=== PATIENT | male | born 1970 | race Caucasian/White ===

== ENCOUNTER 2018-11-08 10:24 | Emergency (ER) | payer OTHER ==
--- NOTE | 2018-11-08 10:58 | ER Document Report ---
ED Medical Screen (RME) - General Mode of Arrival: Ambulatory Information source: Patient <EVRONICA THOMASQUELINE - Last Filed: 11/08/18 10:56> <TYLER MERCADO - Last Filed: 11/08/18 14:29> - General Chief Complaint: Urinary Problem Stated Complaint: BLOOD IN URINE Time Seen by Provider: 11/08/18 10:54 Notes: 48-year-old male presented to ED for complaint of left testicular aching fullness tightness with a bladder aching fullness. He states he has been having frequent urine all weekend but his urine is remaining dark in color. He states he has some stinging with his urine but not really burning. Patient has a history of diabetes fractures to fingers toes high blood pressure and has had a labrum repair and bilateral inguinal hernia repair. Patient is alert oriented respirations regular and unlabored speaking in full sentences. He was sent over by the [place] [facility]. I have greeted and performed a rapid initial assessment of this patient. A comprehensive ED assessment and evaluation of the patient, analysis of test results and completion of medical decision making process will be conducted by an additional ED providers. ([place]ER[place] THOMAS) - Related Data Allergies/Adverse Reactions: No Known Allergies Allergy (Unverified 11/08/18 10:30) - Vital signs Vitals: Temp Pulse Resp BP Pulse Ox 98.2 F 77 16 148/92 H 98 11/08/18 10:37 11/08/18 10:37 11/08/18 10:37 11/08/18 10:37 11/08/18 10:37 Course - Laboratory Result Diagrams: 11/08/18 11:11 11/08/18 11:11 <TYLER MERCADO - Last Filed: 11/08/18 14:29> - Vital Signs Vital signs: Temp Pulse Resp BP Pulse Ox 98.1 F 87 18 158/98 H 100 11/08/18 14:04 11/08/18 14:04 11/08/18 14:04 11/08/18 14:04 11/08/18 14:04 - Laboratory Laboratory results interpreted by me: 11/08/18 11/08/18 10:30 11:11 Glucose 153 H Creatine Kinase 41 L Urine Protein 30 H Urine Glucose (UA) >=500 H Urine Ketones TRACE H Urine Blood LARGE H
[2018-11-08 11:31] LABS: ABSOLUTE EOSINOPHILS # (AUTO) 0.1 10^3/uL (0.0-0.6); ABSOLUTE LYMPHOCYTES (AUTO) 2.4 10^3/uL (0.5-4.7); ABSOLUTE MONOCYTES (AUTO) 0.6 10^3/uL (0.1-1.4); ABSOLUTE NEUT (AUTO) 3.5 10^3/uL (1.7-8.2); BASOPHILS % (AUTO) 0.5 % (0-2); EOSINOPHILS % (AUTO) 1.5 % (0-6); HEMATOCRIT 44.5 % (37.9-51.0); HEMOGLOBIN 15.2 g/dL (13.5-17.0); LYMPHOCYTES % (AUTO) 35.9 % (13-45); MEAN CORPUSCULAR HEMOGLOBIN 29.7 pg (27.0-33.4); MEAN CORPUSCULAR HGB CONC 34.1 g/dL (32.0-36.0); MEAN CORPUSCULAR VOLUME 87 fl (80-97); MONOCYTES % (AUTO) 9.5 % (3-13); PLATELET COUNT 205 10^3/uL (150-450); RED BLOOD COUNT 5.11 10^6/uL (4.35-5.55); RED CELL DISTRIBUTION WIDTH 13.4 % (11.5-14.0); SEGMENTED NEUTROPHILS % (AUTO) 52.6 % (42-78); TOTAL CELLS COUNTED % (AUTO) 100 %; WHITE BLOOD COUNT 6.7 10^3/uL (4.0-10.5)
[2018-11-08 11:33] LABS: APPEARANCE,URINE SLIGHTLY-CLOUDY; BILIRUBIN,URINE NEGATIVE (NEGATIVE); COLOR,URINE YELLOW; GLUCOSE, URINE >=500 mg/dL (NEGATIVE); KETONES,URINE TRACE mg/dL (NEGATIVE); LEUKOCYTE ESTERASE,URINE NEGATIVE (NEGATIVE); NITRITE,URINE NEGATIVE (NEGATIVE); PROTEIN,URINE 30 mg/dL (NEGATIVE); URINE SPECIFIC GRAVITY 1.025; UROBILINOGEN,URINE NEGATIVE mg/dL (<2.0)
[2018-11-08 11:51] LABS: ALANINE AMINOTRANSFERASE 31 U/L (21-72); ALBUMIN 4.3 g/dL (3.5-5.0); ALKALINE PHOSPHATASE 88 U/L (38-126); ANION GAP 12 (5-19); ASPARTATE AMINO TRANSFERASE 19 U/L (17-59); BILIRUBIN,DIRECT 0.3 mg/dL (0.0-0.4); BILIRUBIN,TOTAL 0.7 mg/dL (0.2-1.3); BLOOD UREA NITROGEN 18 mg/dL (7-20); CALCIUM 10.1 mg/dL (8.4-10.2); CARBON DIOXIDE 30 mmol/L (22-30); CHLORIDE 99 mmol/L (98-107); CREATINE KINASE 41 U/L (55-170); GLUCOSE 153 mg/dL (75-110); TOTAL PROTEIN 7.4 g/dL (6.3-8.2)
[2018-11-08 11:53] LABS: LIPASE 180.7 U/L (23-300)
--- NOTE | 2018-11-08 12:02 | RADIOLOGY REPORT (SQ) ---
EXAM DESCRIPTION: U/S SCROTUM W/DOPPLER COMPLETED DATE/TIME: 11/08/2018 11:48 am REASON FOR STUDY: pain and pressure left testicle COMPARISON: None. TECHNIQUE: Static and realtime glynn scale imaging of the scrotum and testes. Selected color Doppler and spectral images recorded to document blood flow. LIMITATIONS: None. FINDINGS: RIGHT: TESTICLE: The right testicle measures 4.0 x 3.4 x 2.6 cm. Normal size. Normal echotexture. Normal blood flow. No mass. EPIDIDYMIS: The head of the epididymis measures 1.4 x 1.0 x 0.9 cm. Normal. HYDROCELE OR VARICOCELE: Small hydrocele. Mildly prominent vessels in the right scrotal sac less th an 3.0 mm in AP diameter. HERNIA OR EXTRA-TESTICULAR MASS: No. OTHER: No other significant finding. LEFT: TESTICLE: The left testicle measures 3.6 x 2.6 x 2.1 cm. Normal size. Normal echotexture. Normal b lood flow. No mass. EPIDIDYMIS: The head of the epididymis measures 1.0 x 0.9 x 0.8 cm. Small 2.7 x 1.9 x 2.2 mm cyst i s not visualized. HYDROCELE OR VARICOCELE: Varicocele. HERNIA OR EXTRA-TESTICULAR MASS: No. OTHER: No other significant finding. IMPRESSION: 1. The testicles are unremarkable in appearance by ultrasound examination. 2. Small cysts in the head of the epididymis on the left. 3. Left varicocele. 4. Small right hydrocele. TECHNICAL DOCUMENTATION: JOB ID: [id number] [employer]- All Rights Reserved Reading location - IP/workstation name: [email or web address]
--- NOTE | 2018-11-08 13:20 | RADIOLOGY REPORT (SQ) ---
EXAM DESCRIPTION: CT ABD/PELVIS NO ORAL OR IV COMPLETED DATE/TIME: 11/08/2018 12:43 pm REASON FOR STUDY: low back pain, hematuria COMPARISON: None. TECHNIQUE: CT scan of the abdomen and pelvis performed without intravenous or oral contrast. Images reviewed with lung, soft tissue, and bone windows. Reconstructed coronal and sagittal MPR images revi ewed. All images stored on PACS. All CT scanners at this facility use dose modulation, iterative reconstruction, and/or weight based d osing when appropriate to reduce radiation dose to as low as reasonably achievable (ALARA). [facility]: Dose Right [facility]: CareDose [facility]: Dose Right [facility]: Teradose 4D [facility]: Adrenaline Mobility RADIATION DOSE: CT Rad equipment meets quality standard of care and radiation dose reduction techniq ues were employed. CTDIvol: 7.6 mGy. DLP: 418 mGy-cm.mGy. LIMITATIONS: None. FINDINGS: LOWER CHEST: No significant findings. No nodules or infiltrates. NON-CONTRASTED LIVER, SPLEEN, ADRENALS: Evaluation limited by lack of IV contrast. No identified sign ificant masses. PANCREAS: No masses. No peripancreatic inflammatory changes. GALLBLADDER: No identified stones by CT criteria. No inflammatory changes to suggest cholecystitis. RIGHT KIDNEY AND URETER: No suspicious masses. Assessment limited by lack of IV contrast. Renal gay culi measuring up to 2 mm. No hydronephrosis or hydroureter. LEFT KIDNEY AND URETER: No suspicious masses. Assessment limited by lack of IV contrast. 4 mm renal calculus lower pole. No hydronephrosis or hydroureter. AORTA AND RETROPERITONEUM: No aneurysm. No retroperitoneal masses or adenopathy. BOWEL AND PERITONEAL CAVITY: No obvious masses or inflammatory changes. No free fluid. APPENDIX: Normal. PELVIS, BLADDER, AND ABDOMINAL WALL:No abnormal masses. No free fluid. Bladder normal. BONES: No significant findings. OTHER: No other significant finding. IMPRESSION: Nonobstructing bilateral renal calculi. COMMENT: Quality ID # [id number]: Final reports with documentation of one or more dose reduction techniques (e.g., Automated exposure control, adjustment of the mA and/or kV according to patient size, use of iterative reconstruction technique) TECHNICAL DOCUMENTATION: JOB ID: [id number] [email or web address]- All Rights Reserved Reading location - IP/workstation name: [email or web address]
[2018-11-08 14:06] VITALS: BP 158/98
--- NOTE | 2018-11-08 14:59 | ER Document Report ---
ED General - General Chief Complaint: Urinary Problem Stated Complaint: BLOOD IN URINE Time Seen by Provider: 11/08/18 10:54 Mode of Arrival: Ambulatory - HPI Notes: Patient presents to the emergency department for evaluation. He states that for the last week he has had a sense of bladder fullness. He is noticed that his urine has been darker than normal. He states this morning he woke up and had an on sensation in his testicle. He believed that he had just slept on it wrong. He has had no fevers. He states he does have some mild low back pain associated with this. No vomiting. No penile discharge. - Related Data Allergies/Adverse Reactions: No Known Allergies Allergy (Unverified 11/08/18 10:30) Past Medical History - General Information source: Patient - Social History Smoking Status: Unknown if Ever Smoked Chew tobacco use (# tins/day): No Frequency of alcohol use: Social Drug Abuse: None Family History: Reviewed & Not Pertinent Patient has suicidal ideation: No Patient has homicidal ideation: No - Past Medical History Cardiac Medical History: Reports: Hx Hypertension Endocrine Medical History: Reports: Hx Diabetes Mellitus Type 2 Renal/ Medical History: Denies: Hx Peritoneal Dialysis Past Surgical History: Reports: Hx Abdominal Surgery - hernia, bilateral inguinal, Hx Orthopedic Surgery - shoulder Review of Systems - Review of Systems Constitutional: No symptoms reported EENT: No symptoms reported Cardiovascular: No symptoms reported Respiratory: No symptoms reported Gastrointestinal: No symptoms reported Genitourinary: See HPI Male Genitourinary: No symptoms reported Musculoskeletal: No symptoms reported Skin: No symptoms reported Neurological/Psychological: No symptoms reported Physical Exam - Vital signs Vitals: Temp Pulse Resp BP Pulse Ox 98.2 F 77 16 148/92 H 98 11/08/18 10:37 11/08/18 10:37 11/08/18 10:37 11/08/18 10:37 11/08/18 10:37 - Notes Notes: Vital signs reviewed, please refer to chart. Head is normocephalic, atraumatic. Pupils equal round, reactive to light. Neck is supple without meningismus. Heart is regular rate and rhythm. Lungs are clear to auscultation bilaterally. Abdomen is soft, nontender, normoactive bowel sounds throughout. No CVA tenderness. Extremities without cyanosis, clubbing. Posterior calves are nontender. Peripheral pulses are equal. Skin is warm and dry. Patient is a wake, alert, neurological exam is nonfocal. Course - Re-evaluation Re-evalutation: 11/08/18 14:56 Patient presents to the emergency department for evaluation. Laboratory investigations are largely unremarkable with the exception of large blood in his urine. Testicular ultrasound is been ordered through triage and was found to be unremarkable. Given the blood in his urine and pain in his testicle, I did feel inclined to perform CT scan. This showed renal stones but no ureterolithiasis. At this point I will get and treat empirically for a cystitis. I explained to the patient in great detail that it is rare for a male of this age group to be diagnosed with urinary tract infection. It is of significant importance that he have his urine rechecked after antibiotic treatment. He voiced understanding to this. He will seek out referral through the [place]. He is to return to the emergency department with worsening or new concerning symptoms of any sort. - Vital Signs Vital signs: Temp Pulse Resp BP Pulse Ox 98.1 F 87 18 158/98 H 100 11/08/18 14:04 11/08/18 14:04 11/08/18 14:04 11/08/18 14:04 11/08/18 14:04 - Laboratory Result Diagrams: 11/08/18 11:11 11/08/18 11:11 Laboratory results interpreted by me: 11/08/18 11/08/18 10:30 11:11 Glucose 153 H Creatine Kinase 41 L Urine Protein 30 H Urine Glucose (UA) >=500 H Urine Ketones TRACE H Urine Blood LARGE H - Diagnostic Test Radiology reviewed: Reports reviewed Radiology results interpreted by me: 11/08/18 14:57 Scrotum Ultrasound 11/08/18 10:55 IMPRESSION: 1. The testicles are unremarkable in appearance by ultrasound examination. 2. Small cysts in the head of the epididymis on the left. 3. Left varicocele. 4. Small right hydrocele. Abdomen/Pelvis CT 11/08/18 12:32 IMPRESSION: Nonobstructing bilateral renal calculi. Discharge - Discharge Clinical Impression: Testicular pain, left Hematuria Qualifiers: Hematuria type: unspecified type Qualified Code(s): R31.9 - Hematuria, unspecified Acute cystitis Qualifiers: Hematuria presence: with hematuria Qualified Code(s): N30.01 - Acute cystitis with hematuria Condition: Stable Disposition: HOME, SELF-CARE Instructions: Hematuria ([facility]) Additional Instructions: Take all of the antibiotic as prescribed. It is very important that you have your urine rechecked, to be sure that all of the blood has cleared. If you develop fevers, vomiting, or any other new or concerning symptoms, return immediately to the emergency department for reevaluation. Prescriptions: Sulfamethoxazole/Trimethoprim [Bactrim Ds Tablet] 1 each PO BID #14 tablet
== END 2018-11-08 15:11 | disposition home or self-care (01) ==
LOC: ER 10:24
DX: N30.01 Acute cystitis with hematuria (principal); N50.3 Cyst of epididymis; I86.1 Scrotal varices; N43.3 Hydrocele, unspecified; M54.5 Low back pain; I10 Essential (primary) hypertension; E11.9 Type 2 diabetes mellitus without complications
CPT/HCPCS: 36415; 74176; 76870; 80053; 81001; 82550; 83690; 85025; 87086; 93976; 99284